=== PATIENT | female | born 1995 | race Two or more races ===

== ENCOUNTER 2017-03-03 14:01 | Emergency (ER) | payer MEDICAID ==
[~2017-03-03] VITALS: Ht 165.1 cm; Wt 54.4 kg
[2017-03-03] MEDS: IV NORMAL SALINE 1000 ML BAG IV ONE (14:29)
[2017-03-03] MEDS: LOPERAMIDE HCL 2 MG CAPSULE PO ONE (14:30)
--- NOTE | 2017-03-03 14:32 | NUR ---
PT IS IN ROOM #2B. DR WILCOX EVALUATED THE PT.
[2017-03-03 14:39] LABS: POTASSIUM 3.1 mmol/L (3.5-5.1)
[2017-03-03] MEDS ORDERED: LOPERAMIDE HCL 2 MG CAPSULE ONE (14:39)
[2017-03-03 14:40] LABS: BASOPHILS % (AUTO) 0.1 % (0.0-2.0); EOSINOPHILS % (AUTO) 0.2 % (0.0-7.0); HEMATOCRIT 37.3 % (37-47); LYMPHOCYTES # (AUTO) 0.3 K/UL (0.8-4.8); LYMPHOCYTES % (AUTO) 2.8 % (20.5-51.5); MEAN CORPUSCULAR HEMOGLOBIN 29.7 UUG (27.0-31.0); MEAN CORPUSCULAR HGB CONC 35 g/dL (32.0-37.0); MEAN CORPUSCULAR VOLUME 85.3 FL (81.0-99.0); MONOCYTES # (AUTO) 0.6 K/UL (0.1-1.30); MONOCYTES % (AUTO) 5.8 % (0.0-11.0); NEUTROPHILS # (AUTO) 8.9 K/UL (1.8-8.9); NEUTROPHILS % (AUTO) 91.1 % (38.5-71.5); PLATELET COUNT (AUTO) 209 K/UL (150-450); RED BLOOD CELL COUNT(AUTO) 4.37 MIL/UL (4.2-5.4); WHITE BLOOD COUNT (AUTO) 9.8 K/UL (4.0-11.2)
[2017-03-03 14:45] LABS: BILIRUBIN,DIRECT 0.3 mg/dL (0.0-0.2); BILIRUBIN,TOTAL 1.8 mg/dL (0.2-1.0); TOTAL PROTEIN, SERUM 7.5 g/dL (6.4-8.2)
[2017-03-03 15:01] LABS: BAND % (MANUAL) 28 % (0-10); LYMPHOCYTES % (MANUAL) 3 % (20-40); MONOCYTES % (MANUAL) 5 % (2-10); NEUTROPHILS % (MANUAL) 64 % (42-75)
[2017-03-03] MEDS: POTASSIUM CHLORIDE 20 MEQ TAB.PRT.SR PO ONE (15:01)
--- NOTE | 2017-03-03 15:15 | NUR ---
Patient discharged to home in stable conditon. Written and verbal after care instructions given. Patient verbalizes understanding of instructions.
== END 2017-03-03 15:19 | disposition home or self-care (01) ==
LOC: ER 14:06
DX: E87.6 Hypokalemia (principal); R55 Syncope and collapse
CPT/HCPCS: 36415; 83690; 84703; 85025; 93005; A4663; J7030

== ENCOUNTER 2021-08-16 11:21 | Emergency (ER) | payer MEDICAID ==
[~2021-08-16] VITALS: Ht 165.1 cm; Wt 51.3 kg
[2021-08-16] MEDS ORDERED: MORPHINE SULFATE 4 MG/1 ML DISP.SYRIN IM ONE (11:45)
[2021-08-16] MEDS ORDERED: KETOROLAC TROMETHAMINE 60 MG INJ IM ONE ×2 (11:45→12:08)
[2021-08-16 11:47] LABS: *BILIRUBIN,URIN NEGATIVE (NEGATIVE); *BLOOD, URINE 2+ (NEGATIVE); *CLARITY,URINE SLIGHTLY CLOUDY (CLEAR); *COLOR,URINE YELLOW (YELLOW); *KETONES,URINE NEGATIVE (NEGATIVE); *URINE HCG, QUAL NEGATIVE (NEGATIVE); *UROBILINOGEN,URINE 0.2 E.U./dl (NORMAL); LEUKOCYTE ESTERASE ,URINE 1+ (NEGATIVE); NITRITE, URINE NEGATIVE (NEGATIVE); UGLUCOSE NEGATIVE (NEGATIVE)
[2021-08-16 11:59] LABS: HEMATOCRIT 37.2 % (31.2-41.9); MEAN CORPUSCULAR HEMOGLOBIN 29.3 uug (24.7-32.8); MEAN CORPUSCULAR VOLUME 86.6 fL (75.5-95.3); PLATELET COUNT (AUTO) 296 K/uL (179-408)
[2021-08-16 12:06] LABS: CREATININE 0.7 mg/dL (0.6-1.3); POTASSIUM 3.8 mmol/L (3.5-5.1)
[2021-08-16] MEDS ORDERED: MORPHINE SULFATE 4 MG/1 ML DISP.SYRIN ONE (12:08)
[2021-08-16 12:12] LABS: BILIRUBIN,DIRECT 0.1 mg/dL (0.0-0.2); BILIRUBIN,TOTAL 0.7 mg/dL (0.2-1.0); TOTAL PROTEIN, SERUM 7.6 g/dL (6.4-8.2)
--- NOTE | 2021-08-16 12:45 | NUR ---
chaperoned md moreno pelvic exam. pt tolerated well.
[2021-08-16] MEDS ORDERED: HYDR-4209 PO (14:30)
[2021-08-16] MEDS ORDERED: IBUP-1955 PO (14:30)
[2021-08-16 14:57] VITALS: BP 111/77
[2021-08-16 17:14] LABS: BACTERIA,URINE FEW /HPF (NONE SEEN); RBC,URINE 20-50 /HPF (0-3); SQUAMOUS EPITHELIAL CELL,UR FEW /HPF (NONE SEEN); URINE AMORPHOUS URATE MODERATE /HPF
== END 2021-08-16 14:58 | disposition home or self-care (01) ==
LOC: ER 11:30
DX: N83.202 Unspecified ovarian cyst, left side (principal); R10.32 Left lower quadrant pain
CPT/HCPCS: 36415; 76856; 80048; 80076; 81001; 83690; 84703; 85025; 87086; 96372 ×2; 99284; J1885; J2270; A4663

== ENCOUNTER 2021-11-01 01:55 | Emergency (ER) | payer SELFPAY ==
[~2021-11-01 01:55] MED LIST: HYDR-4209 PO; IBUP-1955 PO
== END 2021-11-01 07:30 | disposition left against medical advice (07) ==
LOC: ER 01:58
DX: Z53.21 Procedure and treatment not carried out due to patient leaving prior to being seen by health care provider (principal)

== ENCOUNTER 2021-11-03 14:26 | Emergency (ER) | payer MEDICAID ==
[~2021-11-03] VITALS: Ht 165.1 cm; Wt 51.7 kg
--- NOTE | 2021-11-03 15:08 | NUR ---
PT IS IN ROOM #2B. DR VALENCIA EVALUATED THE PT.
[2021-11-03 15:43] LABS: *BILIRUBIN,URIN NEGATIVE (NEGATIVE); *BLOOD, URINE 2+ (NEGATIVE); *COLOR,URINE YELLOW (YELLOW); *KETONES,URINE NEGATIVE (NEGATIVE); *UROBILINOGEN,URINE 0.2 E.U./dl (NORMAL); LEUKOCYTE ESTERASE ,URINE NEGATIVE (NEGATIVE); NITRITE, URINE NEGATIVE (NEGATIVE); PH,URINE 5.5 (5.0-8.0); UGLUCOSE NEGATIVE (NEGATIVE)
[2021-11-03 15:52] LABS: HEMATOCRIT 36.6 % (31.2-41.9); MEAN CORPUSCULAR HEMOGLOBIN 29.4 uug (24.7-32.8); MEAN CORPUSCULAR VOLUME 86.9 fL (75.5-95.3); PLATELET COUNT (AUTO) 321 K/uL (179-408)
[2021-11-03 16:10] LABS: BILIRUBIN,DIRECT 0.2 mg/dL (0.0-0.2); BILIRUBIN,TOTAL 0.8 mg/dL (0.2-1.0); CREATININE 0.6 mg/dL (0.6-1.3); POTASSIUM 4.4 mmol/L (3.5-5.1); TOTAL PROTEIN, SERUM 7.8 g/dL (6.4-8.2)
[2021-11-03 16:53] LABS: *CLARITY,URINE HAZY (CLEAR)
[2021-11-03 16:54] LABS: BACTERIA,URINE FEW /HPF (NONE SEEN); SQUAMOUS EPITHELIAL CELL,UR MODERATE /HPF (NONE SEEN)
[2021-11-03] MEDS ORDERED: HYDR-3972 PO (16:54)
[2021-11-03] MEDS ORDERED: IBUP-1957 PO (16:54)
[2021-11-03] MEDS ORDERED: ONDA4TAB5 PO (17:07)
[2021-11-03 18:04] VITALS: BP 125/69
--- NOTE | 2021-11-03 18:04 | NUR ---
PT WAS D/C'd TO HOME. D/C INSTRUCTIONS GIVEN TO THE PT BY DR VALENCIA.
== END 2021-11-03 18:05 | disposition home or self-care (01) ==
LOC: ER 14:26
DX: G89.29 Other chronic pain (principal); R10.2 Pelvic and perineal pain; N83.202 Unspecified ovarian cyst, left side
CPT/HCPCS: 36415; 70030-TC; 76856; 83690; 85025; A4663